=== PATIENT | male | born 1975 | race Caucasian/White ===

== ENCOUNTER → 2021-09-29 | Outpatient (CLI) | payer MEDICAID ==
[~2021-09-29] MED LIST: IOHEXOL 300 MG/ML 100ML VIAL. IV ONE
--- NOTE | 2021-09-29 11:23 | KCIC ---
EXAM: Chest CT with intravenous contrast. HISTORY: Shortness of air. Chest pain. TECHNIQUE: Computed tomographic images of the chest were obtained following the administration of int ravenous contrast. Multiplanar reformatting was performed. *One or more of the following individualized dose reduction techniques were utilized for this examina tion: 1. Automated exposure control. 2. Adjustment of the mA and/or kV according to patient size. 3. Use of iterative reconstruction technique. COMPARISON: None. FINDINGS: The heart is normal in size. The aorta is normal in caliber. There are nonspecific mediasti nal and hilar lymph nodes, likely physiologic or reactive in etiology. There is no pneumothorax or pl eural effusion. There is no infiltrate. There is lingular and medial right middle lobe atelectasis or scarring. There is bilateral posterior dependent and basilar atelectasis. There is no infiltrate or suspicious pulmonary nodule. There is hepatic steatosis. There is no acute finding involving the visu alized upper abdomen. There is no acute or suspicious osseous finding. IMPRESSION: 1. No acute infiltrate. 2. Lingular and medial right middle lobe atelectasis or scarring. 3. Hepatic steatosis. Electronically signed by: Bettye Fuchs MD (09/29/2021 10:12 AM) [facility]
== END ==
LOC: CT 08:25
PROVIDERS: ATTEND Family Medicine
DX: K76.0 Fatty (change of) liver, not elsewhere classified (principal); R06.02 Shortness of breath
CPT/HCPCS: 71260; Q9967